=== PATIENT | female | born 2000 | race Caucasian/White ===

== ENCOUNTER 2025-07-30 16:45 | Emergency (ER) | payer BC, MEDICAID, SELFPAY ==
--- NOTE | ~2025-07-30 | XR_ITS ---
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 Technique: 2 views obtained. Findings: The lungs are clear, no effusion. No pneumothorax. Heart is normal size. Mediastinal and hilar contours are within normal limits. Bony thorax no acute abnormality. Impression: No acute cardiopulmonary abnormality. Reviewed, dictated and finalized at location [facility] AUTHOR Impression: No acute cardiopulmonary abnormality.
--- NOTE | 2025-07-30 16:47 | ECG_ITS ---
Test Date: 2025-07-30 16:54:25 Measurements Intervals [place] Rate: 84 P: 64 SC: 141 QRS: 65 QRSD: 90 T: 19 QT: 367 QTc: 434 Interpretive Statements SINUS RHYTHM POSSIBLE RIGHT VENTRICULAR CONDUCTION DELAY [RSR (QR) IN V1/V2] NONSPECIFIC T-WAVE ABNORMALITY No previous ECG available for comparison Electronically Signed On 07-31-2025 21:17:42 [employer] by Isabella Metcalf M.D.
[2025-07-30 16:50] VITALS: BP 128/100; PULSE 89; RESP 18; TEMP 36.7; O2SAT 100
--- NOTE | 2025-07-30 16:59 | ED.CHESTPAIN ---
HPI - Chest Pain General Chief Complaint: Chest Pain Stated Complaint: chest pain, SOB. Time Seen by Provider: 07/30/25 16:51 History of Present Illness HPI narrative: Since 4am this morning patient has had some chest pain and shortness of breath, mostly to left side, going to shoulder. Has had h/o ablations for SVT in the past. Related Data Allergies Allergy/AdvReac Type Severity Reaction Status Date / Time No Known Allergies Allergy Unverified 10/21/16 16:01 Course Vital Signs Vital signs: Vital Signs Temperature 98.0 F 07/30/25 16:50 Pulse Rate 89 07/30/25 16:50 Respiratory Rate 18 07/30/25 16:50 Blood Pressure 128/100 H 07/30/25 16:50 Pulse Oximetry 100 07/30/25 16:50 Oxygen Delivery Room Air 07/30/25 16:50 Temperature 98.0 F 07/30/25 16:50 Pulse Rate 73 07/30/25 18:25 Respiratory Rate 12 07/30/25 18:25 Blood Pressure 104/74 07/30/25 18:25 Pulse Oximetry 100 07/30/25 18:25 Oxygen Delivery Room Air 07/30/25 17:05 MDM - Chest Pain MDM Narrative Medical decision making narrative: ED COURSE AND MEDICAL DECISION MAKIN-year-old female presenting with chest pain. EKG done in triage negative for acute ischemic changes. Cardiac workup is initiated. EKG: Performed in triage and interpreted by me. Normal sinus rhythm. Rate normal. Normal axis. MN normal. QRS duration normal. QTc normal. No pathologic Q waves. No ST segment elevation or depression to suggest acute ischemia. No RV strain pattern. HEART score is 0 with no acute ischemic changes on EKG and negative troponin making ACS unlikely. Wells low risk with negative PERC making PE unlikely. Presentation not consistent with dissection or aneurysm without radiation of pain or pulse deficits. CXR negative for mediastinal widening. No abdominal pain or signs of sepsis that would be concerning for esophageal perforation or mediastinitis. No cardiomegaly or JVD to suggest pericardial effusion/tamponade. On repeat evaluation just prior to discharge, the patient is no acute distress. I had a long discussion with the patient and with shared decision making, she is comfortable with outpatient management. She was given clear return instructions by myself in person as well as on discharge paperwork. Lab Data 07/30/25 17:35 07/30/25 17:35 Labs: Lab Results 07/30/25 Range/Units 17:35 WBC 9.2 (4.5-10.0) K/mm3 RBC 4.92 (4.2-5.4) M/mm3 Hgb 14.2 (12.0-15.0) g/dL Hct 43.8 (37.0-47.0) % MCV 89.0 (80-100) fl MCH 28.9 (26-34) pg MCHC 32.4 (32-36) g/dl RDW 12.1 (11.5-14.5) % Plt Count 318 (150-375) k/mm3 MPV 9.8 (7.4-10.4) fl Immature Gran % (Auto) 0.2 (0-0.5) % Neut % (Auto) 55.6 (45.5-73.1) % Lymph % (Auto) 34.2 (18.3-44.2) % Briscoe % (Auto) 7.6 (2.6-8.5) % Eos % (Auto) 1.3 (0-4.4) % Baso % (Auto) 1.1 (0.2-1.2) % Lymph # (Auto) 3.15 (0.9-3.2) K/mm3 Briscoe # (Auto) 0.7 H (0.1-0.6) K/mm3 Eos # (Auto) 0.1 (0-0.3) K/mm3 Baso # (Auto) 0.1 (0.0-0.1) K/mm3 Abs Immat Gran (auto) 0.02 (0.00-0.031) K/mm3 Absolute Neuts (auto) 5.1 (1.3-6.7) K/mm3 Absolute Nucleated RBC 0.000 (0.0-0.012) K/mm3 Nucleated RBC % 0.0 (0.0-0.2) % PT 13.6 (11.1-14.7) Seconds INR 1.0 APTT 28.9 (22.3-36.8) Seconds Sodium 138 (137-145) mmol/L Potassium 3.6 (3.4-5.0) mmol/L Chloride 101 (98-107) mmol/L Carbon Dioxide 25 (22-30) mmol/L Anion Gap 12 (4-12) mmol/L BUN 9 (7-17) mg/dL Creatinine 0.60 L (0.7-1.0) mg/dL Estim Creat Clear Calc Not Reportable Estimated GFR > 60 (59 - ) Glucose 88 (65-110) mg/dL Calcium 9.0 (8.4-10.2) mg/dL Total Bilirubin 0.6 (0.2-1.3) mg/dL AST 26 (14-36) U/L ALT 15 (6-35) U/L Alkaline Phosphatase 56 (38-126) U/L Troponin I < 0.012 (0.000-0.034) ng/mL Total Protein 8.5 H (6.3-8.2) g/dL Albumin 5.0 (3.5-5.1) g/dL Lipase 57 (23-300) U/L Discharge Plan Discharge Clinical Impression: Atypical chest pain Patient Disposition: Home Condition: Stable Instructions: Chest Pain (ED) Additional Instructions: Please follow up with your doctor; you can always return for any further issues. Patient Language: Russian Follow-up/Referrals: Tellez,Josefina Rivera APN [Primary Care Provider, Unknown] Stand Alone Forms: Work/School Release IP
[2025-07-30 17:05] VITALS: O2SAT 100
[2025-07-30 17:53] LABS: Hematocrit 43.8 % (37.0-47.0); Hemoglobin 14.2 g/dL (12.0-15.0); Immature Granulocyte Percent A 0.2 % (0-0.5); Lymphocytes Absolute Auto 3.15 K/mm3 (0.9-3.2); Mean Corpuscular HGB Conc 32.4 g/dl (32-36); Mean Corpuscular Hemoglobin 28.9 pg (26-34); Mean Corpuscular Volume 89.0 fl (80-100); Nucleated Red Blood Cells Absolute Auto 0.000 K/mm3 (0.0-0.012); Nucleated Red Blood Cells Perc 0.0 % (0.0-0.2); Platelet Count Result 318 k/mm3 (150-375); Red Blood Count 4.92 M/mm3 (4.2-5.4); White Blood Count 9.2 K/mm3 (4.5-10.0)
[2025-07-30 18:04] LABS: INR 1.0; Prothrombin Time 13.6 Seconds (11.1-14.7)
[2025-07-30 18:05] LABS: Partial Thromboplastin Time 28.9 Seconds (22.3-36.8)
[2025-07-30 18:09] LABS: Alanine Aminotransferase 15 U/L (6-35); Albumin Level 5.0 g/dL (3.5-5.1); Alkaline Phosphatase 56 U/L (38-126); Anion Gap 12 mmol/L (4-12); Aspartate Amino Transferase 26 U/L (14-36); Bilirubin,Total 0.6 mg/dL (0.2-1.3); Blood Urea Nitrogen 9 mg/dL (7-17); Calcium 9.0 mg/dL (8.4-10.2); Carbon Dioxide 25 mmol/L (22-30); Chloride 101 mmol/L (98-107); Estimated Glomerular Filt Rate > 60; Glucose 88 mg/dL (65-110); Lipase 57 U/L (23-300); Potassium 3.6 mmol/L (3.4-5.0); Sodium 138 mmol/L (137-145); Total Protein 8.5 g/dL (6.3-8.2)
[2025-07-30 18:16] LABS: Troponin I < 0.012 ng/mL (0.000-0.034)
[2025-07-30 18:25] VITALS: BP 104/74; PULSE 73; RESP 12; O2SAT 100
== END 2025-07-30 19:01 | disposition home or self-care (01) ==
LOC: ANHED 18:42
PROVIDERS: Emergency Provider Emergency Medicine; PCP Nurse Practitioner Family
DX: R07.89 Other chest pain (principal); R94.31 Abnormal electrocardiogram [ECG] [EKG]
CPT/HCPCS: 36415; 71046; 80053; 83690; 84484; 85025; 85610; 85730; 93005; 99284